=== PATIENT | male | born 1970 | race African-American/Black ===

== ENCOUNTER 2016-03-12 07:46 | Emergency (ER) | payer MEDICAID, OTHER ==
[~2016-03-12 07:46] MED LIST: Sodium Chloride Irrig Solution 250 ML BOT ONE
[2016-03-12] MEDS ORDERED: Lidocaine 1% 20 ML MDV ONE (08:10)
[2016-03-12] MEDS ORDERED: Acetaminophen/Codeine 30-300mg Tablet ONE (08:33)
[2016-03-12] MEDS ORDERED: Adacel (T-DAP) 0.5 ML VIAL ONE (08:33)
[2016-03-12] MEDS ORDERED: Amoxicillin/Potassium Clav 875 MG TAB ONE (08:33)
--- NOTE | 2016-03-12 09:04 | ERRECORD ---
[facility] EMERGENCY RECORD HPI BITE (08:54 LHOD) CHIEF COMPLAINT: Patient presents for evaluation of cat bite. COMPLICATING FACTORS: Tetanus status not up to date. HISTORIAN: History provided by patient. TIME COURSE: YESTERDAY EVENING PT REPORTS HIS CAT WAS TRYING TO COME IN HOUSE SINCE HIS DOG WAS CHASING IT. PT GRABBED CAT AND CAT BIT TOP OF LEFT HAND. TODAY INCREASING PAIN AND SWELLING OF HAND. ASSOCIATED WITH: Associated with erythema, No associated fever, Associated with localized swelling, constant. RISK FACTORS: Hand bite, Deep puncture. EXACERBATED BY: Patient's condition exacerbated by MOVEMENT. RELIEVED BY: Patient's condition relieved by nothing. ROS (09:58 LHOD) CONSTITUTIONAL: Historian denies fever. CARDIOVASCULAR: Historian denies chest pain. RESPIRATORY: Historian denies shortness of breath. GI: Historian denies abdominal pain, denies nausea, denies vomiting. MUSCULOSKELETAL: Historian denies joint swelling, SWELLING DORSUM LEFT HAND. SKIN: PUNCTURE WOUND (CAT BITE) MID DORSUM LEFT HAND WITH MODERATE SOFT TISSUE SWELING. MARKEDLY TENDER. HEMO/LYMPHATIC: Historian denies easy bruising. NOTES: All systems reviewed, negative except as described above. PAST MEDICAL HISTORY MEDICAL HISTORY: Past medical history includes musculoskeletal disorder, osteoarthritis, fracture to the right hip. (08:00 SCHI) PSYCHIATRIC HISTORY: Notes: PARANOID SCHIZOPHRENIA. (08:00 SCHI) SOCIAL HISTORY: Patient denies alcohol use, Patient denies drug use, Patient currently uses tobacco, smokes cigarettes, Lives at home, with family. (08:00 SCHI) NOTES: Nursing records reviewed. (08:00 LHOD) KNOWN ALLERGIES No Known Drug Allergies CURRENT MEDICATIONS meloxicam: TABLET : Strength - 15 mg : ORAL Patient Dose: once a day. (07:57 SCHI) traZODone: TABLET : Strength - 50 mg : ORAL Patient Dose: once a day (at bedtime). (07:57 SCHI) Abilify: &a-1R&a+25V*p+0X*r3167Z*c202B*c15G*c2P*p-0X&a-25V&a+1R Name: Momo Stevie Llamas : 1970 M45 MedRec: [id number] AcctNum: [id number] Prepared: Sat Mar 12, 2016 10:11 by Interface Page 1 of 3 pMD [facility] EMERGENCY RECORD TABLET : Strength - 10 mg : ORAL Patient Dose: once a day. (07:57 SCHI) Cogentin: TABLET : Strength - 2 mg : ORAL Patient Dose: once a day (at bedtime). (07:58 SCHI) VITAL SIGNS (07:53 SCHI) VITAL SIGNS: BP: 117/81, Pulse: 93, Resp: 20, Temp: 98.2 (Oral), Pain: 6, O2 sat: 98 on Room Air, Time: 03/12/2016 07:53. PHYSICAL EXAM (10:00 LHOD) CONSTITUTIONAL: Vital Signs Reviewed, Patient afebrile, Pulse normal, Blood pressure normal, Patient appears, in moderate pain distress, Patient alert and oriented to person, place and time, PT HAS FREQUENT INVOLUNTARY BODY MOVEMENTS, WHICH MAY BE SECONDARY TO HIS MEDICATION. HEAD: Head exam included findings of head atraumatic. RESPIRATORY CHEST: Respiratory exam included findings of no respiratory distress. UPPER EXTREMITY: LEFT HAND---MODERATE SOFT TISSUE SWELLING OF DORSUM. PUNCTURE WOUND MID DORSUM WITH MARKED TENDERNESS. NO WRIST PUNCTURE. NEURO: Neuro exam findings include patient oriented to person, place and time, FREQUENT INVOLUNTARY MOVEMENTS. MAY BE SECONDARY TO HIS PSYCH MEDICATION. SKIN: Deep subcutaneous, PUNCTURE WOUND DORSUM LEFT HAND. MEDICATION ADMINISTRATION SUMMARY Drug Name: *Adacel(Tdap Adolesn/Adult)(PF), Dose Ordered: 0.5 mL, Route: Intramuscular, Status: Given, Time: 08:35 03/12/2016, Drug Name: Tylenol-Codeine #3, Dose Ordered: 2 tab(s), Route: Oral, Status: Given, Time: 08:35 03/12/2016, Drug Name: Augmentin, Dose Ordered: 1 tab(s), Route: Oral, Status: Given, Time: 08:35 03/12/2016, *Additional information available in notes, Detailed record available in Medication Service section. DOCTOR NOTES (10:05 LHOD) TEXT: PT ADVISED GREAT RISK OF WORSENING INFECTION IF HE DOES NOT TAKE ANTIBIOTIC. ADVISED TO START TODAY. POLICE TO INTERVIEW HIM ABOUT CAT. CAT IMMUNIZATIONS NOT UP TO DATE, BUT LOW RISK OF RABIES WITH THIS BEING PT'S CAT AND FRIGHTENED ANIMAL. PROBLEM LIST No recorded problems DIAGNOSIS (08:24 LHOD) FINAL: PRIMARY: LEFT HAND CAT BITE WITH ABSCESS. &a-1R&a+25V*p+0X*u1515I*c202B*c15G*c2P*p-0X&a-25V&a+1R Name: Stevie Barr : 1970 M45 MedRec: [id number] AcctNum: [id number] Prepared: Lew Mar 12, 2016 10:11 by Interface Page 2 of 3 pMD [facility] EMERGENCY RECORD PRESCRIPTION (08:24 LHOD) Augmentin: TABLET : 875 mg-125 mg : ORAL : Quantity: 1 Unit: tab(s) Route: ORAL Schedule: 2 times a day Dispense: 20 May substitute. Refills: No Refills . NOTES: No Refills. Bactrim DS: TABLET : 800 mg-160 mg : ORAL : Quantity: 1 Unit: tab(s) Route: ORAL Schedule: 2 times a day Dispense: 14 May substitute. Refills: No Refills . NOTES: ^s=No Refills No Refills. Tylenol-Codeine #3: TABLET : 300 mg-30 mg : ORAL : Quantity: 1-2 Unit: tab(s) Route: ORAL Schedule: every 4 hours prn Dispense: 6 May substitute. Refills: No Refills . NOTES: ^s=^s=No Refills No Refills No Refills. DISPOSITION PATIENT: Disposition Type: Discharge, Disposition: *Discharge Home, Condition: Good. (08:24 LHOD) Patient left the department. (08:57 [facility] Krishnamurthy: LHOD=MD Bell Lefayne [facility]ANGIE Parker, Lissy &a-1R&a+25V*p+0X*[id number]*c202B*c15G*c2P*p-0X&a-25V&a+1R Name: Stevie Barr : 1970 5 MedRec: [id number] AcctNum: [id number] Prepared: Lew Mar 12, 2016 10:11 by Interface Page 3 of 3 pMD MTDD
--- NOTE | 2016-03-12 09:10 | PICIS ---
[facility] EMERGENCY RECORD TRIAGE (07:57 SCHI) TRIAGE NOTES: CAT BITE TO LEFT HAND. (07:57 SCHI) PATIENT: AGE: 45, GENDER: male, : Sun 1970, TIME OF GREET: Sat Mar 12, 2016 07:47, PREFERRED LANGUAGE: Italian, ETHNICITY: Not or , ECODE BILLING MAP: [facility], SSN: [id number], Zip Code: [address], KG WEIGHT: 68.95, PHONE: , , , PERSON ID: [id number], PCP: NONE. (07:57 SCHI) NAME: Stevie Barr (08:07) COMPLAINT: CAT BITE TO LEFT HAND. (07:57 SCHI) ADMISSION: URGENCY: 4 Non Urgent, ADMISSION SOURCE: Home, TRANSPORT: CAR, BED: ED -05. (07:57 SCHI) ASSESSMENT: Assessment: CAT BITE TO LEFT HAND, Symptoms began YESTERDAY. (08:00 SCHI) PAIN: Location LEFT HAND. (08:00 SCHI) IMMUNIZATIONS: Flu vaccine up to date, Date of immunization: 2014, Tetanus not up to date. (08:00 SCHI) SIRS SCORING: Heart Rate 55-109 (0), Temp range 96.8-101.1 (0), respiratory rate 12-24 (0), Mental Status altered: no (0), Yes, Infection or Suspected Infection. (08:00 SCHI) TRIAGE SCREENING: Patient denies suicidal ideation, Patient denies presence of domestic violence. (08:02 LWAL) TREATMENTS IN PROGRESS: Treatments given Prehospital: cleansed, neosporin, bandaid. (08:02 LWAL) PROVIDERS: TRIAGE NURSE: Lissy Parker RN. (07:57 SCHI) VITAL SIGNS: BP 117/81, Pulse 93, Resp 20, Temp 98.2, (Oral), Pain 6, O2 Sat 98, on Room Air, Time 03/12/2016 07:53. (07:53 SCHI) PREVIOUS VISIT ALLERGIES: No Known Drug Allergies. (07:57 SCHI) No Known Drug Allergies. (08:00 SCHI) KNOWN ALLERGIES No Known Drug Allergies CURRENT MEDICATIONS meloxicam: TABLET : Strength - 15 mg : ORAL Patient Dose: once a day. (07:57 SCHI) traZODone: TABLET : Strength - 50 mg : ORAL Patient Dose: once a day (at bedtime). (07:57 SCHI) Abilify: TABLET : Strength - 10 mg : ORAL Patient Dose: once a day. (07:57 SCHI) Cogentin: TABLET : Strength - 2 mg : ORAL Patient Dose: once a day (at bedtime). (07:58 SCHI) VITAL SIGNS (07:53 SCHI) VITAL SIGNS: BP: 117/81, Pulse: 93, Resp: 20, Temp: 98.2 (Oral), Pain: 6, O2 sat: 98 on Room Air, Time: 03/12/2016 07:53. &a-1R&a+25V*p+0X*m8436P*c202B*c15G*c2P*p-0X&a-25V&a+1R Name: Stevie Barr Muriel : 1970 M45 MedRec: [id number] AcctNum: [id number] Prepared: Sat Mar 12, 2016 10:17 by Interface Page 1 of 7 pMD [facility] EMERGENCY RECORD NURSING ASSESSMENT: EXTREMITY UPPER (08:03 LWAL) CONSTITUTIONAL: Patient arrives ambulatory, Gait steady, History obtained from patient, Patient appears comfortable, Patient cooperative, Patient alert, Oriented to person, place and time, Skin warm, Skin dry, Skin normal in color, Mucous membranes pink, Mucous membranes moist, Patient is well-groomed, Patient complains of cat bite to left hand, PT PICCKED UP THE CAT OFF HIS PORCH TO KEEP HIS DOG FROM GETTING IT. THE CAT BELONGS TO HIS NEIGHBOR AND IT BIT HIM IN THE PROCESS. HAND IS NOW SWOLLEN AND PAINFUL THIS MORNING. PAIN: to the left hand, Onset of pain YESTERDAY, constant, on a scale 0-10 patient rates pain as 6, Nothing has been tried to alleviate the pain. LEFT UPPER EXTREMITY: Left upper extremity assessment findings include capillary refill less than 2 seconds, Skin color normal to hand, Skin temperature to hand warm, Distal sensation intact, Muscle tone normal, muscle strength 3, non-pitting edema present, radial pulse is +3, brachial pulse is +3, Inspection findings include bite lambert, to TOP OF LEFT HAND, from cat. RIGHT UPPER EXTREMITY: Right upper extremity assessment findings include capillary refill less than 2 seconds, Skin color normal to hand, Skin temperature to hand warm, Distal sensation intact, Muscle tone normal, muscle strength 5, no edema present, radial pulse is +4, brachial pulse is +4. NOTES: Patient tolerated procedure well. SAFETY: Side rails up, Cart/Stretcher in lowest position, Call light within reach, Hospital ID band on. NURSING PROCEDURE: DISCHARGE NOTE (08:47 SCHI) DISCHARGE: Patient discharged to home, ambulating without assistance, family driving, accompanied by //partner, Summary of Care printed/ provided, Patient requested and was provided an electronic copy of Discharge Instructions, Transition record given to patient, Discharge instructions given to patient, Simple or moderate discharge teaching performed, Prescriptions given and instructions on side effects given, Medication reconciliation form given, Above person(s) verbalized understanding of discharge instructions and follow-up care, Patient treated and evaluated by physician. BELONGINGS: Belongings and valuables with patient at time of discharge include:, Belongings remain with patient, Valuables remain with patient. NOTES: Emotional support needed and given, Patient tolerated procedure well. SAFETY: Side rails up, Cart/Stretcher in lowest position, Family at bedside, Hospital ID band on. &a-1R&a+25V*p+0X*p5226G*c202B*c15G*c2P*p-0X&a-25V&a+1R Name: Stevie Barr : 1970 M45 MedRec: [id number] AcctNum: [id number] Prepared: Sat Mar 12, 2016 10:17 by Interface Page 2 of 7 pMD [facility] EMERGENCY RECORD NURSING PROCEDURE: INCISION AND DRAINAGE (08:15 SCHI) PATIENT IDENTIFIER: Patient actively involved in identification process, Patient's identity verified by patient stating name, Patient's identity verified by hospital ID brakelly. I & D: Incision and drainage indicated to promote healing, Incision and drainage performed, to left hand, by Dr. bell, Wound culture labeled in the presence of the patient and sent to lab, from cat bite to left hand, Simple dressing applied, using 2x2 dressing, packed with 1/4 inch iodoform packing, wrapped in 4 inch coban. FOLLOW-UP: After procedure, dressing dry and intact. NOTES: Patient tolerated procedure well. ORDER DETAILS Order Name: Culture & GS, Bacterial/Wound, Status: Active, Time: 08:23 03/12/2016, User: PLACIDO, - Ordered for: MD Bell Lefayne, - Entered by: MD Bell Lefayne - Sat Mar 12, 2016 08:23, - Quantity: 1, Order Name: DRESSING APPLICATION/CHANGE, Status: Done, Time: 08:24 03/12/2016, User: [facility], - Ordered for: MD Bell Lefayne, - Entered by: MD Bell Lefayne - Lew Mar 12, 2016 08:23, - Quantity: 1. MEDICATION ADMINISTRATION SUMMARY Drug Name: *Adacel(Tdap Adolesn/Adult)(PF), Dose Ordered: 0.5 mL, Route: Intramuscular, Status: Given, Time: 08:35 03/12/2016, Drug Name: Tylenol-Codeine #3, Dose Ordered: 2 tab(s), Route: Oral, Status: Given, Time: 08:35 03/12/2016, Drug Name: Augmentin, Dose Ordered: 1 tab(s), Route: Oral, Status: Given, Time: 08:35 03/12/2016, *Additional information available in notes, Detailed record available in Medication Service section. MEDICATION SERVICE (08:35 [facility]) Adacel(Tdap Adolesn/Adult)(PF): Order: Adacel(Tdap Adolesn/Adult)(PF) (diphth,pertuss(acell),tet vac/preservative free) - Dose: 0.5 mL : Intramuscular Notes: TDAP Ordered by: Josue Bell MD Entered by: Josue Bell MD Sat Mar 12, 2016 08:07 , Acknowledged by: Callie Montano RN Sat Mar 12, 2016 08:09 Documented as given by: Lissy Parker RN Sat Mar 12, 2016 08:35 Patient, Medication, Dose, Route and Time verified prior to administration. IM immunization, Medication administered to left deltoid, Vaccination information sheet given to patient, Correct patient, time, route, dose and medication confirmed prior to administration, Patient &a-1R&a+25V*p+0X*r6975P*c202B*c15G*c2P*p-0X&a-25V&a+1R Name: Stevie Barr : 1970 M45 MedRec: [id number] AcctNum: [id number] Prepared: Sat Mar 12, 2016 10:17 by Interface Page 3 of 7 pMD [facility] EMERGENCY RECORD advised of actions and side-effects prior to administration, Allergies confirmed and medications reviewed prior to administration. Augmentin: Order: Augmentin (amoxicillin trihydrate/potassium clavulanate) - Dose: 1 tab(s) : Oral Ordered by: Josue Bell MD Entered by: Josue Bell MD Sat Mar 12, 2016 08:07 , Acknowledged by: Callie Montano RN Sat Mar 12, 2016 08:09 Documented as given by: Lissy Parker RN Sat Mar 12, 2016 08:35 Patient, Medication, Dose, Route and Time verified prior to administration. Site: Medication administered P.O., Correct patient, time, route, dose and medication confirmed prior to administration, Patient advised of actions and side-effects prior to administration, Allergies confirmed and medications reviewed prior to administration. Tylenol-Codeine #3: Order: Tylenol-Codeine #3 (acetaminophen/codeine phosphate) - Dose: 2 tab(s) : Oral Ordered by: Josue Bell MD Entered by: Josue Bell MD Sat Mar 12, 2016 08:12 , Acknowledged by: Lissy Parker RN Sat Mar 12, 2016 08:32 Documented as given by: Lissy Parker RN Sat Mar 12, 2016 08:35 Patient, Medication, Dose, Route and Time verified prior to administration. Site: Medication administered P.O., Correct patient, time, route, dose and medication confirmed prior to administration, Patient advised of actions and side-effects prior to administration, Allergies confirmed and medications reviewed prior to administration. HPI BITE (08:54 LHOD) CHIEF COMPLAINT: Patient presents for evaluation of cat bite. COMPLICATING FACTORS: Tetanus status not up to date. HISTORIAN: History provided by patient. TIME COURSE: YESTERDAY EVENING PT REPORTS HIS CAT WAS TRYING TO COME IN HOUSE SINCE HIS DOG WAS CHASING IT. PT GRABBED CAT AND CAT BIT TOP OF LEFT HAND. TODAY INCREASING PAIN AND SWELLING OF HAND. ASSOCIATED WITH: Associated with erythema, No associated fever, Associated with localized swelling, constant. RISK FACTORS: Hand bite, Deep puncture. EXACERBATED BY: Patient's condition exacerbated by MOVEMENT. RELIEVED BY: Patient's condition relieved by nothing. ROS (09:58 LHOD) CONSTITUTIONAL: Historian denies fever. CARDIOVASCULAR: Historian denies chest pain. RESPIRATORY: Historian denies shortness of breath. GI: Historian denies abdominal pain, denies nausea, denies vomiting. MUSCULOSKELETAL: Historian denies joint swelling, SWELLING DORSUM LEFT HAND. &a-1R&a+25V*p+0X*q8187Y*c202B*c15G*c2P*p-0X&a-25V&a+1R Name: Stevie Barr : 1970 M45 MedRec: [id number] AcctNum: [id number] Prepared: Lew Mar 12, 2016 10:17 by Interface Page 4 of 7 pMD [facility] EMERGENCY RECORD SKIN: PUNCTURE WOUND (CAT BITE) MID DORSUM LEFT HAND WITH MODERATE SOFT TISSUE SWELING. MARKEDLY TENDER. HEMO/LYMPHATIC: Historian denies easy bruising. NOTES: All systems reviewed, negative except as described above. PAST MEDICAL HISTORY MEDICAL HISTORY: Past medical history includes musculoskeletal disorder, osteoarthritis, fracture to the right hip. (08:00 SCHI) PSYCHIATRIC HISTORY: Notes: PARANOID SCHIZOPHRENIA. (08:00 SCHI) SOCIAL HISTORY: Patient denies alcohol use, Patient denies drug use, Patient currently uses tobacco, smokes cigarettes, Lives at home, with family. (08:00 SCHI) NOTES: Nursing records reviewed. (08:00 LHOD) PHYSICAL EXAM (10:00 LHOD) CONSTITUTIONAL: Vital Signs Reviewed, Patient afebrile, Pulse normal, Blood pressure normal, Patient appears, in moderate pain distress, Patient alert and oriented to person, place and time, PT HAS FREQUENT INVOLUNTARY BODY MOVEMENTS, WHICH MAY BE SECONDARY TO HIS MEDICATION. HEAD: Head exam included findings of head atraumatic. RESPIRATORY CHEST: Respiratory exam included findings of no respiratory distress. UPPER EXTREMITY: LEFT HAND---MODERATE SOFT TISSUE SWELLING OF DORSUM. PUNCTURE WOUND MID DORSUM WITH MARKED TENDERNESS. NO WRIST PUNCTURE. NEURO: Neuro exam findings include patient oriented to person, place and time, FREQUENT INVOLUNTARY MOVEMENTS. MAY BE SECONDARY TO HIS PSYCH MEDICATION. SKIN: Deep subcutaneous, PUNCTURE WOUND DORSUM LEFT HAND. EVENTS TRANSFER: Triage to Emergency Main ED -05. (Sat Mar 12, 2016 07:57 SCHI) Removed from Emergency Main ED -05. (08:57 SCHI) DOCTOR NOTES (10:05 LHOD) TEXT: PT ADVISED GREAT RISK OF WORSENING INFECTION IF HE DOES NOT TAKE ANTIBIOTIC. ADVISED TO START TODAY. POLICE TO INTERVIEW HIM ABOUT CAT. CAT IMMUNIZATIONS NOT UP TO DATE, BUT LOW RISK OF RABIES WITH THIS BEING PT'S CAT AND FRIGHTENED ANIMAL. INCISION AND DRAINAGE (10:03 LHOD) INCISION AND DRAINAGE: Verbal consent obtained, Incision and drainage indicated for cutaneous abscess, 1% Lidocaine without epinephrine used, 2 mLs, Incision and drainage of skin abscess, &a-1R&a+25V*p+0X*r7146G*c202B*c15G*c2P*p-0X&a-25V&a+1R Name: Stevie Barr : 1970 M45 MedRec: [id number] AcctNum: [id number] Prepared: Sat Mar 12, 2016 10:17 by Interface Page 5 of 7 pMD [facility] EMERGENCY RECORD Location: DORSUM LEFT HAND, simple, Incision was made over area of fluctuance, Explored for loculations, Irrigated, Packed with sterile gauze, Drained pus, Amount (mLs) SMALL AMOUNT PUS INITIALLY CULTURED, THEN SOME BLEEDING, After procedure, wound dressed, Tetanus status not up to date, tetanus immunization ordered, PACKED WITH 1/8 INCH GAUZE TO KEEP WOUND OPEN. PROBLEM LIST No recorded problems DIAGNOSIS (08:24 LHOD) FINAL: PRIMARY: LEFT HAND CAT BITE WITH ABSCESS. DISPOSITION PATIENT: Disposition Type: Discharge, Disposition: *Discharge Home, Condition: Good. (08:24 LHOD) Patient left the department. (08:57 SCHI) INSTRUCTION (08:27 LHOD) DISCHARGE: BITE CAT, ABSCESS, I AND D. FOLLOWUP: Follow up with Primary Care Physician in 1 day. SPECIAL: ELEVATE HAND. WOUND RECHECK TOMORROW. START ANTIBIOTICS TODAY. *RETURN IF WORSE Follow-up with your PCP. PRESCRIPTION (08:24 LHOD) Augmentin: TABLET : 875 mg-125 mg : ORAL : Quantity: 1 Unit: tab(s) Route: ORAL Schedule: 2 times a day Dispense: 20 May substitute. Refills: No Refills . NOTES: No Refills. Bactrim DS: TABLET : 800 mg-160 mg : ORAL : Quantity: 1 Unit: tab(s) Route: ORAL Schedule: 2 times a day Dispense: 14 May substitute. Refills: No Refills . NOTES: ^s=No Refills No Refills. Tylenol-Codeine #3: TABLET : 300 mg-30 mg : ORAL : Quantity: 1-2 Unit: tab(s) Route: ORAL Schedule: every 4 hours prn Dispense: 6 May substitute. Refills: No Refills . NOTES: ^s=^s=No Refills No Refills No Refills. IMAGING TETANUS CONSENT: Image captured from scanner. (08:43 [facility] *DISCHARGE INSTRUCTIONS RECEIPT: Image captured from scanner. (08:54 [facility]) *SUPPLY CHARGE SHEET: Image captured from scanner. (08:54 [facility]) &a-1R&a+25V*p+0X*g7300P*c202B*c15G*c2P*p-0X&a-25V&a+1R Name: Stevie Barr : 1970 M45 MedRec: [id number] AcctNum: [id number] Prepared: Sat Mar 12, 2016 10:17 by Interface Page 6 of 7 pMD [facility] EMERGENCY RECORD ADMIN DIGITAL SIGNATURE: ANGIE Parker, Lissy. (08:57 SCHI) MD Bell Lefayne. (10:07 OD) Krishnamurthy: PLACIDO=MD Bell Lefayne LWAL=ANGIE Montano, Callie SCHI=ANGIE Parker Slinda &a-1R&a+25V*p+0X*n8754J*c202B*c15G*c2P*p-0X&a-25V&a+1R Name: Stevie Barr : 1970 M45 MedRec: [id number] AcctNum: [id number] Prepared: Lew Mar 12, 2016 10:17 by Interface Page 7 of 7 pMD MTDD
== END 2016-03-12 08:47 | disposition home or self-care (01) ==
LOC: MADERS 07:46
DX: S61.452A Open bite of left hand, initial encounter (principal); L02.512 Cutaneous abscess of left hand; M19.90 Unspecified osteoarthritis, unspecified site; F20.9 Schizophrenia, unspecified; F17.210 Nicotine dependence, cigarettes, uncomplicated; Z23 Encounter for immunization; Z79.899 Other long term (current) drug therapy; W55.01XA Bitten by cat, initial encounter; Y92.009 Unspecified place in unspecified non-institutional (private) residence as the place of occurrence of the external cause
CPT/HCPCS: 10060; 87070; 87077; 87186; 87205; 90471; 90715; J2001

== ENCOUNTER 2016-05-23 09:29 | Emergency (ER) | payer MEDICAID ==
[2016-05-23] MEDS ORDERED: HYDROcodone/Acetaminophen 10/325 mg Tablet ONE (10:57)
[2016-05-23] MEDS ORDERED: Naproxen 500 MG TAB ONE (10:58)
== END 2016-05-23 11:04 | disposition home or self-care (01) ==
LOC: MADERS 09:29
DX: M17.11 Unilateral primary osteoarthritis, right knee (principal); M16.11 Unilateral primary osteoarthritis, right hip; F20.0 Paranoid schizophrenia; F17.210 Nicotine dependence, cigarettes, uncomplicated; Z79.891 Long term (current) use of opiate analgesic; Z79.899 Other long term (current) drug therapy
CPT/HCPCS: 99283

== ENCOUNTER 2016-07-18 10:08 | Emergency (ER) | payer MEDICAID ==
[2016-07-18] MEDS ORDERED: Naproxen 500 MG TAB ONE (10:42)
[2016-07-18] MEDS ORDERED: Dexamethasone 4 MG TAB ONE (10:42)
== END 2016-07-18 10:56 | disposition home or self-care (01) ==
LOC: MADERS 10:08
DX: M16.11 Unilateral primary osteoarthritis, right hip (principal); E78.00 Pure hypercholesterolemia, unspecified; F17.210 Nicotine dependence, cigarettes, uncomplicated; Z79.899 Other long term (current) drug therapy
CPT/HCPCS: 99283; J8540

== ENCOUNTER 2016-07-27 09:27 | Emergency (ER) | payer MEDICAID ==
[2016-07-27] MEDS ORDERED: Diazepam 5 MG TAB ONE (10:07)
[2016-07-27] MEDS ORDERED: Naproxen 500 MG TAB ONE (10:07)
[2016-07-27] MEDS ORDERED: HYDROcodone/Acetaminophen 10/325 mg Tablet ONE (10:07)
== END 2016-07-27 10:45 | disposition home or self-care (01) ==
LOC: MADERS 09:27
DX: Z76.0 Encounter for issue of repeat prescription (principal); G70.9 Myoneural disorder, unspecified; E78.00 Pure hypercholesterolemia, unspecified; F20.0 Paranoid schizophrenia; F17.210 Nicotine dependence, cigarettes, uncomplicated; Z79.899 Other long term (current) drug therapy; Z79.2 Long term (current) use of antibiotics
CPT/HCPCS: 99282

== ENCOUNTER 2017-06-15 09:23 | Outpatient (CLI) | payer MEDICAID, OTHER ==
--- NOTE | 2017-06-15 10:57 | RAD ---
CERVICAL SPINE THREE VIEWS: HISTORY:A 47-year-old male with a history of cervicalgia. FINDINGS: Very markedly severe multilevel disk osteophytosis noted of the cervical spine, particularly from C3- C4 through C7-T1, with some resultant kyphosis of the upper cervical spine. No abnormal prevertebral soft tissue swelling. There is generalized facet arthrosis. C7-T1 is partially obscured on the lat eral view. IMPRESSION: Severe cervical spondylosis. Minimal kyphosis of the upper cervical spine. No overt acute process. POS: OFF
== END 2017-06-15 09:24 | disposition home or self-care (01) ==
LOC: MADRAD 09:23
PROVIDERS: ATTEND Family Medicine
DX: M47.892 Other spondylosis, cervical region (principal)
CPT/HCPCS: 72040

== ENCOUNTER 2019-07-29 12:19 | Emergency (ER) | payer OTHER ==
[~2019-07-29 12:19] MED LIST changes: +Iopamidol 370 76% 100 ML VIAL ONE; -Sodium Chloride Irrig Solution 250 ML BOT ONE
[2019-07-29 13:08] LABS: #Basophils 0.1 thou/uL (0.0-0.2); #Lymphocytes 1.8 thou/uL (1.20-3.40); #Monocytes 0.5 thou/uL (0.11-0.59); %Basophils 1.5 % (0.0-1.0); %Eosinophils 15.3 % (0.0-10.0); %Lymphocytes 28.6 % (21.0-51.0); %Monocytes 7.2 % (0.0-10.0); %Neutrophils 47.3 % (42.0-75.0); Hemoglobin 11.9 g/dL (14.0-18.0); Mean Corpuscular HGB CONC 30.3 g/dL (32.0-36.0); Mean Corpuscular Volume 92.4 fL (78.0-98.0); Mean Platelet Volume 5.7 fL (7.4-10.4); Platelet Count 326 thou/uL (130-400); RBC Distribution Width 13.9 % (11.5-14.5); Red Blood Cell (RBC) Count 4.23 mill/uL (4.70-6.10); White Blood Cell (WBC) Count 6.4 thou/uL (4.8-10.8)
[2019-07-29 13:14] LABS: INR-International Normal Ratio 0.9; PTT 31.9 sec (22.9-36.1); Prothrombin Time 12.1 sec (12.0-14.7)
[2019-07-29 13:24] LABS: ALT (SGPT) 30 U/L (8-55); AST (SGOT) 32 U/L (5-34); Albumin 3.9 g/dL (3.5-5.0); Alcohol Less than 10 mg/dL (Less than 10); Alkaline Phosphatase 97 U/L (40-110); Anion Gap 13 mmol/L (10-20); BUN (Urea Nitrogen) 9 mg/dL (8.9-20.6); Bilirubin, Total 0.2 mg/dL (0.2-1.2); Calc. Creatinine Clearance 0 mL/min (70-130); Calcium 9.2 mg/dL (7.8-10.44); Carbon Dioxide 28 mmol/L (22-29); Chloride 108 mmol/L (98-107); Estimated GFR-MDRD Greater than 90; Globulin 3.3 g/dL (2.4-3.5); Glucose 86 mg/dL (70-105); Potassium 5.2 mmol/L (3.5-5.1); Protein, Total 7.2 g/dL (6.0-8.3); Sodium 144 mmol/L (136-145)
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
== END 2019-07-29 14:50 | disposition left against medical advice (07) ==
LOC: MADERS 12:19
DX: S12.300A Unspecified displaced fracture of fourth cervical vertebra, initial encounter for closed fracture (principal); S16.1XXA Strain of muscle, fascia and tendon at neck level, initial encounter; M19.90 Unspecified osteoarthritis, unspecified site; E78.00 Pure hypercholesterolemia, unspecified; F20.9 Schizophrenia, unspecified; F17.210 Nicotine dependence, cigarettes, uncomplicated; V43.52XA Car driver injured in collision with other type car in traffic accident, initial encounter
CPT/HCPCS: 36415; 70450; 71260; 72125; 74177; 80053; 80307; 85025; 85610; 85730; Q9967

== ENCOUNTER 2019-11-18 09:40 | Emergency (ER) | payer OTHER ==
[2019-11-19 16:22] LABS: SARS-CoV-2 MS2 Positive; SARS-CoV-2 N Gene Negative; SARS-CoV-2 S Gene Negative; SARS-CoV-2 by NAA Not Detected (NotDetected); SARS-CoV-2 orf1ab Negative
== END 2019-11-18 10:44 | disposition home or self-care (01) ==
LOC: MADERS 09:40
DX: G62.9 Polyneuropathy, unspecified (principal); M62.838 Other muscle spasm; F20.9 Schizophrenia, unspecified; F17.210 Nicotine dependence, cigarettes, uncomplicated; Z20.828 Contact with and (suspected) exposure to other viral communicable diseases; E78.00 Pure hypercholesterolemia, unspecified; M19.90 Unspecified osteoarthritis, unspecified site
CPT/HCPCS: 87635; 99284; U0003

== ENCOUNTER 2020-12-02 08:53 | Outpatient (CLI) | payer OTHER | END 2020-12-02 08:54 | disposition home or self-care (01) | LOC: MADRAD 08:53 | PROVIDERS: ATTEND Family Medicine | DX: M25.552 Pain in left hip (principal); M16.12 Unilateral primary osteoarthritis, left hip ==

== ENCOUNTER 2021-02-21 15:07 | Emergency (ER) | payer OTHER ==
[2021-02-21] MEDS ORDERED: Ibuprofen 800 MG TAB ONE (15:32)
[2021-02-21] MEDS ORDERED: Loperamide HCl 2 MG CAP ONE (15:32)
[2021-02-22 15:21] LABS: SARS-CoV-2 PCR by NAA Not Detected (NotDetected)
== END 2021-02-21 15:38 | disposition home or self-care (01) ==
LOC: MADERS 15:07
DX: B34.9 Viral infection, unspecified (principal); J20.8 Acute bronchitis due to other specified organisms; Z20.822 Contact with and (suspected) exposure to COVID-19; M19.90 Unspecified osteoarthritis, unspecified site; E78.00 Pure hypercholesterolemia, unspecified; F17.210 Nicotine dependence, cigarettes, uncomplicated
CPT/HCPCS: 99284; U0003; U0005

== ENCOUNTER 2021-08-22 21:16 | Emergency (ER) | payer OTHER ==
[~2021-08-22 21:16] MED LIST changes: -Iopamidol 370 76% 100 ML VIAL ONE; +Sodium Chloride 0.9% 1,000 ML BAG ONE
[2021-08-22] MEDS ORDERED: Sodium Chloride 0.9% 1,000 ML ONE (21:51)
[2021-08-22] MEDS ORDERED: Aspirin Chewable 81 MG TAB ONE (21:51)
[2021-08-22] MEDS ORDERED: Acetaminophen 500 MG TAB ONE (21:51)
[2021-08-22 21:52] LABS: #Basophils 0.2 thou/uL (0.0-0.2); #Eosinphils 0.7 thou/uL (0.0-0.7); #Lymphocytes 0.4 thou/uL (1.20-3.40); #Monocytes 0.5 thou/uL (0.11-0.59); #Neutrophils 4.6 thou/uL (1.40-6.50); %Basophils 2.4 % (0.0-1.0); %Lymphocytes 5.8 % (21.0-51.0); %Monocytes 7.8 % (0.0-10.0); Hemoglobin 12.5 g/dL (14.0-18.0); Mean Corpuscular HGB CONC 32.4 g/dL (32.0-36.0); Mean Corpuscular Hemoglobin 27.4 pg (27.0-31.0); Mean Corpuscular Volume 84.4 fL (78.0-98.0); Mean Platelet Volume 7.2 fL (7.4-10.4); Platelet Count 192 thou/uL (130-400); RBC Distribution Width 14.3 % (11.5-14.5); Red Blood Cell (RBC) Count 4.57 mill/uL (4.70-6.10); White Blood Cell (WBC) Count 6.3 thou/uL (4.8-10.8)
[2021-08-22 22:13] LABS: ALT (SGPT) 17 U/L (8-55); AST (SGOT) 22 U/L (5-34); Alkaline Phosphatase 103 U/L (40-110); Anion Gap 14 mmol/L (10-20); BUN (Urea Nitrogen) 9 mg/dL (8.4-25.7); Bilirubin, Total 0.2 mg/dL (0.2-1.2); Calc. Creatinine Clearance 0 mL/min (70-130); Calcium 9.2 mg/dL (7.8-10.44); Carbon Dioxide 26 mmol/L (22-29); Chloride 106 mmol/L (98-107); Estimated GFR 108; Globulin 2.9 g/dL (2.4-3.5); Glucose 86 mg/dL (70-105); Potassium 4.5 mmol/L (3.5-5.1); Protein, Total 6.9 g/dL (6.0-8.3); Sodium 141 mmol/L (136-145)
[2021-08-22 22:45] LABS: Bilirubin Negative (Negative); Blood, Urine Negative (Negative); Clarity Clear (Clear); Glucose, Urine (Dipstick) Negative (Negative); Ketone, Urine Negative (Negative); Leukocyte Negative (Negative); Nitrite Negative (Negative); Protein, Urine (Dipstick) Negative (Neg-Trace); Specific Gravity, Urine 1.025 (1.005-1.030)
[2021-08-22 22:56] LABS: Amphetamine Not Detected (NotDetected); Barbiturates Screen Not Detected (NotDetected); Benzodiazepine Screen Not Detected (NotDetected); Cocaine Metabolite Screen Not Detected (NotDetected); Medtox Control Line Valid? VALID (VALID); Methadone Not Detected (NotDetected); Methamphetamine Not Detected (NotDetected); Opiate Screen Not Detected (NotDetected); Oxycodone Screen Not Detected (NotDetected); Phencyclidine (PCP) Not Detected (NotDetected); THC/Cannabinoid Screen Not Detected (NotDetected); Tricyclic Screen Not Detected (NotDetected)
[2021-08-22 22:57] LABS: SARS-CoV-2 NAA Rapid Test DETECTED (NotDetected)
== END 2021-08-22 23:54 | disposition home or self-care (01) ==
LOC: MADERS 21:16
DX: U07.1 COVID-19 (principal); I10 Essential (primary) hypertension; E78.00 Pure hypercholesterolemia, unspecified; M19.90 Unspecified osteoarthritis, unspecified site; F17.210 Nicotine dependence, cigarettes, uncomplicated; Z79.899 Other long term (current) drug therapy
CPT/HCPCS: 71045; 80053; 80306; 81003; 83605; 84484; 85025; 87040; 93005; 96360; 96361; J7050

== ENCOUNTER 2022-12-07 11:06 | Outpatient (CLI) | payer OTHER ==
[2022-12-07 11:19] LABS: Bilirubin Negative (Negative); Blood, Urine Negative (Negative); Clarity Clear (Clear); Glucose, Urine (Dipstick) Negative (Negative); Ketone, Urine Negative (Negative); Leukocyte Negative (Negative); Nitrite Negative (Negative); Protein, Urine (Dipstick) Negative (Neg-Trace); Specific Gravity, Urine 1.015 (1.005-1.030); Urobilinogen 0.2 mg/dL (Less than 2); pH, Urine 6.5 (5.0-9.0)
[2022-12-07 11:29] LABS: INR-International Normal Ratio 0.9; Prothrombin Time 12.7 sec (12.0-14.7)
[2022-12-07 11:30] LABS: Bacteria/HPF Rare-Few HPF (None Seen); PTT 34.8 sec (22.9-36.1); RBC/HPF None Seen HPF (0-3); Squamous Epithelial 0-3 HPF (0-3); WBC/HPF 0-3 HPF (0-3)
[2022-12-07 11:38] LABS: ALT (SGPT) 13 U/L (8-55); AST (SGOT) 22 U/L (5-34); Albumin 3.9 g/dL (3.5-5.0); Alkaline Phosphatase 86 U/L (40-110); Anion Gap 13 mmol/L (10-20); BUN (Urea Nitrogen) 12 mg/dL (8.4-25.7); Bilirubin, Total 0.2 mg/dL (0.2-1.2); Calc. Creatinine Clearance 0 mL/min (70-130); Calcium 9.4 mg/dL (7.8-10.44); Carbon Dioxide 23 mmol/L (22-29); Chloride 108 mmol/L (98-107); Estimated GFR 109; Globulin 3.4 g/dL (2.4-3.5); Glucose 96 mg/dL (70-105); Potassium 4.3 mmol/L (3.5-5.1); Protein, Total 7.3 g/dL (6.0-8.3); Sodium 140 mmol/L (136-145)
[2022-12-07 11:47] LABS: #Basophils 0.1 thou/uL (0.0-0.2); #Eosinphils 0.7 thou/uL (0.0-0.7); #Lymphocytes 1.5 thou/uL (1.20-3.40); #Monocytes 0.3 thou/uL (0.11-0.59); #Neutrophils 2.9 thou/uL (1.40-6.50); %Basophils 2.5 % (0.0-1.0); %Lymphocytes 26.7 % (21.0-51.0); %Monocytes 6.1 % (0.0-10.0); %Neutrophils 51.8 % (42.0-75.0); Hematocrit 41.6 % (42.0-52.0); Hemoglobin 12.9 g/dL (14.0-18.0); Mean Corpuscular HGB CONC 31.1 g/dL (32.0-36.0); Mean Corpuscular Hemoglobin 27.5 pg (27.0-31.0); Mean Corpuscular Volume 88.5 fl (78.0-98.0); Mean Platelet Volume 7.3 fL (7.4-10.4); Platelet Count 284 10x3/uL (130-400); RBC Distribution Width 14.3 % (11.5-14.5); White Blood Cell (WBC) Count 5.5 10x3/uL (4.8-10.8)
== END 2022-12-07 11:07 | disposition home or self-care (01) ==
LOC: MADEKG 11:06
PROVIDERS: ATTEND Nurse Practitioner Family
DX: Z01.818 Encounter for other preprocedural examination (principal)
CPT/HCPCS: 36415; 80053; 81001; 85025; 85610; 85730; 93005; 93010

== ENCOUNTER 2024-01-23 10:04 | Outpatient (CLI) | payer OTHER | END 2024-01-23 10:05 | disposition home or self-care (01) | LOC: MADLAB 10:04 | PROVIDERS: ATTEND Nurse Practitioner Family | DX: R51.9 Headache, unspecified (principal); J34.89 Other specified disorders of nose and nasal sinuses | CPT/HCPCS: 70450 ==

== ENCOUNTER 2024-04-28 10:29 | Emergency (ER) | payer OTHER ==
[2024-04-28] MEDS ORDERED: HYDROcodone/Acetaminophen 5/325 mg Tablet ONE (11:04)
== END 2024-04-28 11:48 | disposition home or self-care (01) ==
LOC: MADERS 10:29
DX: J01.40 Acute pansinusitis, unspecified (principal); G89.29 Other chronic pain; M54.50 Low back pain, unspecified; M25.551 Pain in right hip; M25.552 Pain in left hip; I10 Essential (primary) hypertension; F17.210 Nicotine dependence, cigarettes, uncomplicated
CPT/HCPCS: 99283